=== PATIENT | female | born 1995 | race Caucasian/White ===

== ENCOUNTER 2020-12-30 08:49 | Outpatient (REF) | payer OTHER, SELFPAY | END 2020-12-30 08:50 | disposition home or self-care (01) | LOC: HO.LAB 08:49 | PROVIDERS: Visit Provider Internal Medicine | DX: Z20.822 Contact with and (suspected) exposure to COVID-19 (principal) | CPT/HCPCS: 36415; C9803; U0003; U0005 ==

== ENCOUNTER 2021-02-21 09:25 | Outpatient (REF) | payer OTHER, SELFPAY ==
[2021-02-21 09:49] LABS: COVID-19 Test Positive (Negative); IDNOW Serial# 55D5AD1C
== END 2021-02-21 09:26 | disposition home or self-care (01) ==
LOC: HO.LAB 09:25
PROVIDERS: Visit Provider Internal Medicine
DX: Z20.822 Contact with and (suspected) exposure to COVID-19 (principal)
CPT/HCPCS: 36415; 87635; C9803

== ENCOUNTER 2021-05-12 12:01 | Emergency (ER) | payer OTHER, SELFPAY ==
[2021-05-12 14:27] VITALS: BP 138/83; PULSE 77; RESP 19; TEMP 36.6; O2SAT 99; BMI 31.3
[2021-05-12] MEDS: Acetaminophen 325 MG TABLET 650 MG PO (14:32)
[2021-05-12 14:48] LABS: Glucose Urine UA NEG (NEG); Leukocyte Esterase Urine 2+ (NEG); Nitrite Urine NEG (NEG); Specific Gravity - Urine 1.025 (1.005-1.025); Urine Blood NEG (NEG); Urine Ketones NEG (NEG); Urine Protein TRACE MG/DL (NEG-TRACE)
[2021-05-12 14:51] LABS: Color Urine YELLOW
[2021-05-12 14:52] LABS: Appearance Urine CLOUDY
[2021-05-12 15:10] LABS: Bacteria Urine 1+ /LPF; RBC Urine 0-2 /HPF (0); Squamous Epithelial Cell Urine 2+ /LPF
[2021-05-12 15:15] LABS: Hematocrit 39.6 % (37-47); Hemoglobin 13.4 g/dl (12.0-16.0); Mean Corpuscular HGB Conc 33.8 g/dl (31.0-35.0); Mean Corpuscular Hemoglobin 30.5 pg (27.0-33.0); Mean Corpuscular Volume 90.2 fL (80-98); Mean Platelet Volume 9.7 fL (9.4-12.3); Platelet Count 280 X10*3/uL (160-400); Red Blood Count 4.39 X10*6/uL (4.20-5.50); Red Cell Distribution Width 11.6 % (11.0-16.0)
[2021-05-12 15:39] LABS: Anion Gap 11 (12-20); Blood Urea Nitrogen 16 mg/dL (9-16); Calcium 9.2 mg/dL (8.4-10.2); Carbon Dioxide 25 mmol/L (22-29); Chloride 106 mmol/L (96-108); Creatinine Clr Calc Pharmacy 129.3; Estimated Glomerular Filt Rate > 60; Glucose Random 95 mg/dL (60-115); Potassium 4.1 mmol/L (3.3-5.1); Sodium 138 mmol/L (135-145)
[2021-05-12 16:10] VITALS: BP 121/81; PULSE 79; RESP 18; TEMP 36.9; O2SAT 98
--- NOTE | 2021-05-12 16:45 | ED_ITS ---
HPI - Female Genitourinary General Chief complaint: Urogenital-Female Stated complaint: multiple complaints Time Seen by Provider: 05/12/21 16:44 Source: patient Mode of arrival: ambulatory Limitations: no limitations History of Present Illness HPI Narrative: 25-year-old female status post fallopian tube ablation, patient stated after the surgery has been getting lower/suprapubic abdominal pain, dysuria frequency urination, increased vaginal discharge, patient is sexually active with 1 person for 3 years with low risk of STDs, patient's symptoms started for few months ago, no fever, no chills. Related Data Previous Rx's Medication Instructions Recorded nitrofurantoin 100 mg PO Q12H 7 Days #14 cap 05/12/21 monohydrate/macrocrystals 100 mg capsule (Macrobid) Allergies Allergy/AdvReac Type Severity Reaction Status Date / Time rice [RICE] Allergy Unknown TONGUE Unverified 06/27/20 18:15 SWELLING Review of Systems Review of Systems: All other systems are reviewed and are negative Constitutional: Reports as per HPI and Reports no additional constitutional complaints Eyes: Reports as per HPI and Reports no additional eye complaints Reports system reviewed and no additional complaints, except as documented Cardiovascular: Reports as per HPI and Reports no additional cardiovascular complaints Respiratory: Reports as per HPI and Reports no additional respiratory complaints Gastrointestinal: Reports as per HPI and Reports no additional gastrointestinal complaints Genitourinary: Reports no additional female genitourinary complaints Musculoskeletal: Reports no additional musculoskeletal complaints Skin/Breast: Reports system reviewed and no additional complaints, except as docu Psychiatric: Reports no additional psychiatric complaints Endocrine: Reports no additional endocrine complaints Hematologic/Lymphatic: Reports no additional hematologic/lymphatic complaints Allergic/Immunologic: Reports no additional allergic/immunologic complaints Reports system reviewed and no additional complaints, except as documented and Reports Abnormal speech present [facility] Past Medical History Medical History Encounter for prophylactic removal of fallopian tube Social History Social History Alcohol intake: never Smoked in Last 30 Days: No Use of substances other than those prescribed or required for medical reasons: No Advance Directives: No Advance Directives Information Provided: No Patient : No Physical Exam Vital Signs: Vital Signs: Last Vital Signs Temp 98.4 F 05/12/21 16:10 Pulse 79 08/02/21 16:10 Resp 18 05/12/21 16:10 BP 121/81 05/12/21 16:10 Pulse Ox 98 05/12/21 16:10 Body Mass Index 31.3 Vital signs have been reviewed as appeared to be correct. Blood pressure normal. Heart rate normal. Respiration rate normal. Temperature normal. Oxygen saturation normal. Appearance: Alert. Oriented X3. No acute distress. Head: Normal external exam. Normocephalic. Atraumatic. No Bell signs noted. No raccoon eyes noted Eyes: PERRLA. EOMI. Conjunctiva and sclera normal. Eyelids normal. ENT: TM's Normal. Pharynx normal. Uvula midline. Moist mucous membranes. No trismus noted. No drooling noted. No muffled voice noted. Neck: Normal inspection. Neck supple. FROM. No adenopathy. Thyroid Normal. No meningeal signs. No neck mass noted. CVS: Normal heart rate and rhythm. Heart sound normal. No murmurs noted. Pulses normal throughout. Respiratory: No respiratory distress. Painless inspiration. Breath sounds normal. No wheezes/rales/rhonchi noted. Chest nontender. No accessory muscle usage noted or decreased air movement noted. Abdomen: Soft and nontender. Bowel sounds normal in all 4 quadrants. No distention noted. No organomegaly noted. No visible injury noted. Pelvic exam: Increased greenish discharge the bald, normal inspection otherwise, no adnexal mass, no CMT. Back: No CVA tenderness. Full range of motion noted. Skin: Skin warm and dry. Normal skin color. Normal skin turgor. No rashes/lesions/lacerations noted. Extremities: No lower extremity edema. Extremities exhibit normal range of mot ion. Extremities nontender. Neuro: Oriented X 3. No motor deficit. No sensory deficit. Reflexes normal. Course Course Course Narrative: Assessment and plan. 25-year-old female came in with chronic symptoms of lower/suprapubic abdominal pain few months ago, dysuria, UA revealed small amount of LE, in light of presence UTI symptoms will treat with Macrobid week patient is instructed to drink plenty of fluids. [facility] - Female Genitourinary Lab Data Attestation: I reviewed the patient's lab results. Result diagrams: 05/12/21 15:05 05/12/21 15:05 Labs: Lab Results 05/12/21 05/12/21 05/12/21 Range/Units 14:37 15:05 15:05 WBC 9.0 (4.8-10.8) X10*3/uL RBC 4.39 (4.20-5.50) X10*6/uL Hgb 13.4 (12.0-16.0) g/dl Hct 39.6 (37-47) % MCV 90.2 (80-98) fL MCH 30.5 (27.0-33.0) pg MCHC 33.8 (31.0-35.0) g/dl RDW 11.6 (11.0-16.0) % Plt Count 280 (160-400) X10*3/uL MPV 9.7 (9.4-12.3) fL Absolute Nucleated RBC 0.000 (0.0-0.012) X10*3/uL Nucleated RBC % (auto) 0.0 (0.0-0.2) /100WBC Sodium 138 (135-145) mmol/L Potassium 4.1 (3.3-5.1) mmol/L Chloride 106 (96-108) mmol/L Carbon Dioxide 25 (22-29) mmol/L Anion Gap 11 L (12-20) BUN 16 (9-16) mg/dL Creatinine 0.73 (0.5-1.4) mg/dL Estim Creat Clear Calc 129.3 Estimated GFR > 60 Random Glucose 95 (60-115) mg/dL Calcium 9.2 (8.4-10.2) mg/dL Urine Color YELLOW Urine Appearance CLOUDY Urine pH 6.0 (5.0-8.0) Ur Specific [place] 1.025 (1.005-1.025) Urine Protein TRACE (NEG-TRACE) MG/DL Urine Glucose (UA) NEG (NEG) MG/DL Urine Ketones NEG (NEG) MG/DL Urine Blood NEG (NEG) Urine Nitrite NEG (NEG) Ur Leukocyte Esterase 2+ H (NEG) Urine RBC 0-2 (0) /HPF Urine WBC 1-4 (0-4) /HPF Ur Squamous Epith Cells 2+ /LPF Urine Bacteria 1+ /LPF Discharge Plan Discharge Clinical Impression: Pelvic pain Urinary tract infection Qualifiers: Urinary tract infection type: acute cystitis Hematuria presence: without hematuria Qualified Code(s): N30.00 - Acute cystitis without hematuria Patient Disposition: Home, Self-Care Instructions: Urinary Tract Infection in Women (ED) Prescriptions: New nitrofurantoin monohyd/m-cryst [Macrobid] 100 mg capsule 100 mg PO Q12H 7 Days Qty: 14 RF: 0 Referrals: Physician,None [Primary Care Provider] - 2 days Gloria Mata MD [Physician] - 2 days
--- NOTE | 2021-05-12 17:03 | PC.NURSE ---
pct and md to bedside for pelvic exam
[2021-05-13 00:50] LABS: CT PCR NOT DETECTED (Not Detect.); NG PCR NOT DETECTED (Not Detect.)
== END 2021-05-12 17:23 | disposition home or self-care (01) ==
PROVIDERS: Emergency Provider Emergency Medicine
DX: N30.00 Acute cystitis without hematuria (principal); R10.30 Lower abdominal pain, unspecified
CPT/HCPCS: 36415; 80048; 81001; 85027; 87491; 87591; 99284